=== PATIENT | female | born 1980 | race Caucasian/White ===

== ENCOUNTER 2022-04-21 15:33 | Outpatient (CLI) | payer BC, SELFPAY | END 2022-04-21 15:34 | disposition home or self-care (01) | LOC: FRMREF 15:33 | PROVIDERS: PCP Physician Assistant Medical; Visit Provider Physician Assistant Medical | DX: Z01.419 Encounter for gynecological examination (general) (routine) without abnormal findings (principal); E03.9 Hypothyroidism, unspecified | CPT/HCPCS: 84443 ==

== ENCOUNTER 2024-04-06 08:24 | Outpatient (CLI) | payer OTHER, SELFPAY | END 2024-04-06 08:25 | disposition home or self-care (01) | PROVIDERS: PCP Physician Assistant Medical; Visit Provider Physician Assistant Medical | DX: Z00.00 Encounter for general adult medical examination without abnormal findings (principal); E03.9 Hypothyroidism, unspecified; Z13.6 Encounter for screening for cardiovascular disorders; Z13.9 Encounter for screening, unspecified | CPT/HCPCS: 80053; 80061; 84443 ==